=== PATIENT | male | born 1940 | race Caucasian/White ===

== ENCOUNTER 2016-12-05 07:54 | Day surgery (SDC) | payer OTHER ==
[2016-11-21 17:44] VITALS: BMI 31.3
[2016-12-05] MEDS ORDERED: FLURBIPROFEN 0.03% OPHTH SOLN 2.5 ML BOTTLE ONE (08:07)
[2016-12-05] MEDS ORDERED: GENTAMICIN SULFATE 0.3% OPHTHALMIC (EYE DROPS) 5ML BOTTLE ONE (08:08)
[2016-12-05] MEDS ORDERED: CYCLOPENTOLATE HCL 1% OPHTH SOLN 2 ML BOTTLE ONE (08:08)
[2016-12-05] MEDS ORDERED: TROPICAMIDE 1% OPHTH SOLN 15 ML BOTTLE ONE (08:08)
[2016-12-05] MEDS ORDERED: PHENYLEPHRINE 2.5% OPHTH SOLN 15 ML BOTTLE ONE (08:08)
[2016-12-05] MEDS: TROPICAMIDE 1% OPHTH SOLN 15 ML BOTTLE OD SCH ×3 (08:25→08:35)
[2016-12-05] MEDS: FLURBIPROFEN 0.03% OPHTH SOLN 2.5 ML BOTTLE OD SCH ×3 (08:25→08:35)
[2016-12-05] MEDS: CYCLOPENTOLATE HCL 1% OPHTH SOLN 2 ML BOTTLE OD SCH ×3 (08:25→08:35)
[2016-12-05] MEDS: GENTAMICIN SULFATE 0.3% OPHTHALMIC (EYE DROPS) 5ML BOTTLE OD SCH ×3 (08:25→08:35)
[2016-12-05] MEDS: PHENYLEPHRINE 2.5% OPHTH SOLN 15 ML BOTTLE OD SCH ×3 (08:25→08:35)
[2016-12-05] MEDS ORDERED: MIDAZOLAM HCL 2 MG/2 ML SINGLE DOSE VIAL ONE (09:22)
[2016-12-05] MEDS ORDERED: LIDOCAINE HCL/PF 2% SDV 5ML VIAL ONE (09:31)
[2016-12-05] MEDS ORDERED: BUPIVACAINE HCL/PF 0.5% (5MG/ML) 10 ML VIAL ONE (09:31)
[2016-12-05] MEDS ORDERED: ACETYLCHOLINE 1:100 INTRA-OCUL 20 MG/2 ML KIT ONE (09:31)
[2016-12-05] MEDS ORDERED: PROPOFOL 20 ML ONE (09:44)
[2016-12-05] MEDS ORDERED: ACETAMINOPHEN 325 MG TABLET (FP) PO PRN (11:03)
[2016-12-05 12:01] VITALS: TEMP 97.8
[2016-12-05 12:03] VITALS: BP 134/59; PULSE 70
--- NOTE | 2016-12-06 08:12 | OP ---
DATE OF OPERATION: 12/05/2016 PREOPERATIVE DIAGNOSIS: Cataract, right eye. POSTOPERATIVE DIAGNOSIS: Cataract, right eye. PROCEDURE: Cataract extraction via phacoemulsification with insertion of posterior chamber lens implant, right eye. ANESTHESIA: Regional with sedation. SURGEON: Russell Milton MD STRING CUTTER: Lise Cortez MD ESTIMATED BLOOD LOSS: Less than 1 mL. SPECIMENS: None. COMPLICATIONS: None. DESCRIPTION OF PROCEDURE: The patient was identified in the holding area. After all risks, benefits, and alternatives were explained to the patient, informed consent was obtained. The right eye was marked with a marking pen. The patient then entered the operating room on an eye stretcher, and after a formal time-out was performed, a 3-mL injection of equal parts of 2% lidocaine with epinephrine and 0.5% Marcaine was given around the right eye. The right eye was prepped and draped in the usual sterile fashion. An eyelid speculum was placed beneath the eyelids of the right eye. A superotemporal paracentesis incision was created using a 15-degree blade. Viscoelastic was injected into the anterior chamber. A 2.4-mm keratome blade was then used to make an inferotemporal incision. A 360-degree continuous curvilinear capsulorrhexis was then created using bent cystotome and Utrata forceps. Hydrodissection was performed with balanced saline solution on a cannula. Phacoemulsification was introduced to disassemble and remove the nucleus in its entirety. Irrigation/aspiration was then used to remove any remaining cortical material from the eye. The capsular bag was then refilled using viscoelastic. An Farhad model SN60WF with a power of 21.5 diopters, serial number [id number], was inspected and found to be defect-free and injected into the capsular bag. Irrigation/aspiration was then used to remove any remaining viscoelastic from the eye. The anterior chamber was reformed using balanced saline solution. Intracameral injections of Miochol and Miostat were then given to the eye, and the pupil came down. 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 The main wound was then secured using one interrupted 10-0 nylon suture, and it was noted that there was completely no iris anywhere near the wound. Upon inspection, the anterior chamber was deep. The eye had an adequate pressure. There was a red reflex present, and the lens was perfectly centered in the capsular bag. Topical antibiotic eye drops and ointment were then administered to the right eye. The eyelid speculum was removed from the right eye. The right eye was patched and shielded, and the patient tolerated the procedure well and left the operating room in stable condition to follow up in the eye clinic tomorrow at 9:00. RUSSELL MILTON M.D. [id number]
== END 2016-12-05 11:40 | disposition home or self-care (01) ==
LOC: FASU 07:54
PROVIDERS: ATTEND Ophthalmology
PROC: 08RJ3JZ Replacement of Right Lens with Synthetic Substitute, Percutaneous Approach (ICD-10-PCS; principal; 2016-12-05 10:10)
DX: H26.8 Other specified cataract (principal)

== ENCOUNTER 2017-03-13 09:31 | Day surgery (SDC) | payer OTHER ==
[2017-03-07 11:23] VITALS: BMI 31.3
[2017-03-13] MEDS ORDERED: FLURBIPROFEN 0.03% OPHTH SOLN 2.5 ML BOTTLE ONE (09:47)
[2017-03-13] MEDS ORDERED: PHENYLEPHRINE 2.5% OPHTH SOLN 15 ML BOTTLE ONE (09:48)
[2017-03-13] MEDS ORDERED: TROPICAMIDE 1% OPHTH SOLN 15 ML BOTTLE ONE (09:48)
[2017-03-13] MEDS ORDERED: GENTAMICIN SULFATE 0.3% OPHTHALMIC (EYE DROPS) 5ML BOTTLE ONE (09:48)
[2017-03-13] MEDS ORDERED: CYCLOPENTOLATE HCL 1% OPHTH SOLN 2 ML BOTTLE ONE (09:48)
[2017-03-13] MEDS: TROPICAMIDE 1% OPHTH SOLN 15 ML BOTTLE OD SCH ×5 (10:00→10:20)
[2017-03-13] MEDS: GENTAMICIN SULFATE 0.3% OPHTHALMIC (EYE DROPS) 5ML BOTTLE OD SCH ×5 (10:00→10:20)
[2017-03-13] MEDS: CYCLOPENTOLATE HCL 1% OPHTH SOLN 2 ML BOTTLE OD SCH ×5 (10:00→10:20)
[2017-03-13] MEDS: PHENYLEPHRINE 2.5% OPHTH SOLN 15 ML BOTTLE OD SCH ×5 (10:00→10:20)
[2017-03-13] MEDS: FLURBIPROFEN 0.03% OPHTH SOLN 2.5 ML BOTTLE OD SCH ×5 (10:00→10:20)
[2017-03-13 10:05] VITALS: TEMP 97.9
[2017-03-13] MEDS ORDERED: MIDAZOLAM HCL 2 MG/2 ML SINGLE DOSE VIAL ONE (10:28)
[2017-03-13] MEDS ORDERED: ACETAMINOPHEN 325 MG TABLET (FP) PO PRN (11:35)
--- NOTE | 2017-03-13 12:11 | OP ---
DATE OF OPERATION: 03/13/2017 PREOPERATIVE DIAGNOSIS: Cataract, left eye. POSTOPERATIVE DIAGNOSIS: Cataract, left eye. PROCEDURE: Cataract extraction via phacoemulsification with insertion of posterior chamber lens implant, left eye. SURGEON: Russell Milton MD BACTERIOLOGIST INDUSTRIAL: Lise Cortez MD ANESTHESIA: Regional with sedation. ESTIMATED BLOOD LOSS: Less than 1 mL. COMPLICATIONS: None. SPECIMENS: None. DESCRIPTION OF PROCEDURE: The patient was identified in the holding area. After all risks, benefits, and alternatives were explained to the patient, informed consent was obtained. The left eye was marked with a marking pen. The patient entered the operating room on an eye stretcher. After a formal timeout was performed, a 3-mL injection of 2% lidocaine with epinephrine and 0.5% Marcaine was given around the left eye. The left eye was then prepped and draped in the usual sterile fashion. An eyelid speculum was placed beneath the eyelids of the left eye. An inferotemporal paracentesis incision was then created using a 15-degree blade. Viscoelastic was injected into the anterior chamber. A 2.4-mm keratome blade was then used to make a superotemporal incision. A 360-degree continuous curvilinear capsulorrhexis was then created using bent cystotome and Utrata forceps. Hydrodissection was performed using balanced saline solution on a cannula. Phacoemulsification was introduced to disassemble and remove the nucleus in its entirety. Irrigation/aspiration was then used to remove any remaining cortical material from the eye. The capsular bag was then refilled using Viscoelastic. An Farhad model SN60WF with a power of 21.5 diopters, serial number [id number], was inspected and found to be defect-free and injected into the capsular bag. Irrigation/aspiration was then used to remove any remaining Viscoelastic from the eye. Anterior chamber was reformed using balanced salt solution. Intracameral injections of Miochol and Miostat were then given and the pupil came down, was round. All wounds were hydrated with balanced salt solution, noted to be watertight. The lens was perfectly centered in the capsular bag, there was red reflex present. The anterior chamber was deep. The eye had an adequate pressure. Topical antibiotic eye drops were then instilled onto the eye. The eyelid speculum was removed from the left eye. The left eye was patched and shielded. The patient tolerated the procedure well and left the operating room in stable condition to follow up in the eye clinic tomorrow around 9:00 in the morning. RUSSELL MILTON M.D. [id number]
[2017-03-13 12:51] VITALS: BP 134/56; PULSE 68
== END 2017-03-13 12:20 | disposition home or self-care (01) ==
LOC: FASU 09:31
PROVIDERS: ATTEND Ophthalmology
PROC: 08RK3JZ Replacement of Left Lens with Synthetic Substitute, Percutaneous Approach (ICD-10-PCS; principal; 2017-03-13 11:03)
DX: H26.8 Other specified cataract (principal)